=== PATIENT | female | born 1960 | race Caucasian/White ===

== ENCOUNTER 2017-07-24 10:18 | Emergency (ER) | payer BC, OTHER ==
[~2017-07-24] VITALS: Ht 157.5 cm; Wt 67.1 kg
[2017-07-24 10:26] VITALS: BP_SYST 118
--- NOTE | 2017-07-24 10:30 | NUR ---
Patient triaged and placed in waiting room. VSS and patient appears in no acute distress at this time. Accompanied by SELF, awaiting available bed, and MD notified of need for MSE.
--- NOTE | 2017-07-24 11:03 | NUR ---
Pt placed in bed 7, report endorsed to Flynn THOMAS
--- NOTE | 2017-07-24 11:10 | NUR ---
Patient, aao x 4, from home with complaint of facial injury since this morning. Patient states "I was walking, tripped and fell on my face." She presents superficial abrasion to nose and bruising to lower bilateral lower eyes. Patient able to move all extermities, no drifting, has purposeful movement, and even smile. Denies KO during fall. No other complaints/injuries per patient, none noted.
--- NOTE | 2017-07-24 11:15 | NUR ---
Dr. Steele at bedside examining patient.
--- NOTE | 2017-07-24 11:20 | NUR ---
TAKEN TO RADIOLOGY AMBULATORY
--- NOTE | 2017-07-24 11:27 | NUR ---
BROUGHT BACK TO BED #7 FROM RADIOLOGY
[2017-07-24 12:50] VITALS: BP_SYST 141
--- NOTE | 2017-07-24 12:50 | NUR ---
Patient given written and verbal discharge instructions and verbalizes understanding. ER MD discussed with patient the results and treatment provided. Patient in stable condition. ID arm band removed. Rx of Naprosyn given. Patient educated on pain management and to follow up with PMD within 2 to 3days. Pain Scale 5/10; tolerable and requires no intervention at this time; pt and MD agreeable to discharge home. Opportunity for questions provided and answered.
== END 2017-07-24 12:50 | disposition home or self-care (01) ==
LOC: SED 10:18
DX: S00.83XA Contusion of other part of head, initial encounter (principal); Z88.5 Allergy status to narcotic agent; W19.XXXA Unspecified fall, initial encounter; Y93.89 Activity, other specified; Y92.89 Other specified places as the place of occurrence of the external cause; Y99.8 Other external cause status
CPT/HCPCS: 70486-TC; 99284